=== PATIENT | male | born 1955 | race African-American/Black ===

== ENCOUNTER 2021-11-20 14:22 | Inpatient (IN) | payer MEDICAID, OTHER ==
[~2021-11-20] VITALS: Ht 175.3 cm; Wt 85.0 kg
[~2021-11-20 14:22] MED LIST: ASPI81CH43 PO; ATO40T PO; DOCU100C10 PO; ENO100SY SC; GEMF-19 PO; INSLANTI SC; INSREGI SC; LAB20I IV; METF-370 PO; TERA2CAP45 PO
[2021-11-20] MEDS ORDERED: ONDANSETRON HCL 4 MG/2 ML VIAL IV ONE (15:30)
[2021-11-20] MEDS ORDERED: MORPHINE SULFATE 4 MG/ML SYR/VIAL IV ONE (15:30)
[2021-11-20 15:53] LABS: Basophils # (auto) 0 10 ^3/uL (0-0.2); Eosinophils # (auto) 0 10 ^3/uL (0-0.8); Eosinophils % (auto) 0.4 % (0.0-7.0); Monocytes # (auto) 0.5 10 ^3/uL (0-1.3); Neutrophils # (auto) 5.7 10 ^3/uL (1.6-8.6); Nucleated Red Blood Cells % 0.1 %
[2021-11-20 15:57] LABS: Basophils % (auto) 0.3 % (0.0-2.0); Hematocrit 35.6 % (41.0-53.0); Hemoglobin 11.8 g/dL (13.5-17.5); Lymphocytes # (auto) 0.7 10 ^3/uL (0.4-5.4); Lymphocytes % (auto) 10.4 % (10.0-50.0); Mean Corpuscular Volume 72.9 fL (80.0-100.0); Neutrophils % (auto) 81.9 % (37.0-80.0); Red Blood Cells 4.89 10^6/uL (4.5-5.90); Red Cell Distribution Width 14.7 % (11.8-14.3)
[2021-11-20 16:13] LABS: Magnesium 3.6 mg/dL (1.6-2.6); Potassium 3.3 mmol/L (3.5-5.1)
[2021-11-20 16:18] LABS: Albumin 3.5 g/dL (3.4-5.0); BUN/Creatinine Ratio 15.8; Calcium 9.1 mg/dL (8.5-10.1)
[2021-11-20 16:20] LABS: Bilirubin, Total 0.4 mg/dL (0.2-1.0); Total Protein 6.7 g/dL (6.4-8.2)
[2021-11-20] MEDS ORDERED: MORPHINE SULFATE INJECTION 2 MG/ML SYRG IV PRN (17:45)
[2021-11-20] MEDS ORDERED: NITROGLYCERIN 0.4 MG SL TAB SL PRN (17:45)
[2021-11-20 22:00] VITALS: BP 121/77
[2021-11-21] MEDS ORDERED: SUCR1TAB PO (00:01)
[2021-11-21] MEDS ORDERED: IBUP800T26 PO (00:01)
[2021-11-21] MEDS ORDERED: HYDR12.56 PO (00:01)
[2021-11-21] MEDS ORDERED: ACET-6 PO (00:01)
[2021-11-21] MEDS ORDERED: LOSA-39 PO (00:01)
[2021-11-21] MEDS ORDERED: CARV12.544 PO (00:01)
[2021-11-21] MEDS: MORPHINE SULFATE INJECTION 2 MG/ML SYRG IV PRN ×3 (01:05→22:29)
[2021-11-21 05:15] VITALS: BP 127/81
[2021-11-21 06:00] LABS: Basophils # (auto) 0 10 ^3/uL (0-0.2); Eosinophils # (auto) 0.1 10 ^3/uL (0-0.8); Lymphocytes # (auto) 0.9 10 ^3/uL (0.4-5.4); Monocytes # (auto) 0.6 10 ^3/uL (0-1.3); Nucleated Red Blood Cells % 0.1 %; White Blood Cell 6.6 10^3/uL (4.4-10.8)
[2021-11-21 06:03] LABS: Basophils % (auto) 0.3 % (0.0-2.0); Eosinophils % (auto) 0.8 % (0.0-7.0); Hematocrit 30.7 % (41.0-53.0); Hemoglobin 10.1 g/dL (13.5-17.5); Mean Corpuscular Hemoglobin 23.9 pg (28.0-32.0); Mean Corpuscular Volume 72.4 fL (80.0-100.0); Monocytes % (auto) 8.7 % (0.0-12.0); Neutrophils # (auto) 5.1 10 ^3/uL (1.6-8.6); Neutrophils % (auto) 77.2 % (37.0-80.0); Red Blood Cells 4.24 10^6/uL (4.5-5.90); Red Cell Distribution Width 14.6 % (11.8-14.3)
[2021-11-21 06:06] LABS: Albumin 2.9 g/dL (3.4-5.0); BUN/Creatinine Ratio 18.2; Calcium 8.8 mg/dL (8.5-10.1); Potassium 3.8 mmol/L (3.5-5.1)
[2021-11-21 06:17] LABS: Bilirubin, Total 0.4 mg/dL (0.2-1.0)
[2021-11-21 08:00] VITALS: BP 139/88
[2021-11-21 08:52] LABS: INR 0.96 (0.9-1.15); Partial Thromboplastin Time 26.1 sec (23.6-33.0)
[2021-11-21] MEDS ORDERED: ENOXAPARIN SOD 30 MG/0.3 ML SYRINGE SC SCH (10:00)
[2021-11-21] MEDS ORDERED: DEXTROSE (50%) 50ML SYRG IV PRN (11:15)
[2021-11-21] MEDS: InsuLIN REG 1unit/0.01ml Soln (100units/ml) SC SCH ×2 (11:30→17:43)
[2021-11-21 12:00] VITALS: BP 151/70
[2021-11-21] MEDS: ACCU-CHEK COMFORT CURVE STRIP VI SCH ×3 (14:12→21:59)
[2021-11-21 16:00] VITALS: BP 134/66
[2021-11-21 22:00] VITALS: BP 120/74
[2021-11-21] MEDS ORDERED: InsuLIN REG 1unit/0.01ml Soln (100units/ml) SC SCH (22:00)
[2021-11-22 05:00] VITALS: BP 138/68
[2021-11-22] MEDS: InsuLIN REG 1unit/0.01ml Soln (100units/ml) SC SCH ×2 (07:00→11:30)
[2021-11-22] MEDS: ACCU-CHEK COMFORT CURVE STRIP VI SCH ×2 (07:00→11:30)
[2021-11-22] MEDS: MORPHINE SULFATE INJECTION 2 MG/ML SYRG IV PRN (07:01)
[2021-11-22 09:00] VITALS: BP 111/68
[2021-11-22 13:00] VITALS: BP 136/77
[2021-11-22 13:59] VITALS: BP 112/72
[2021-11-22 14:10] VITALS: BP 111/68
== END 2021-11-22 17:00 | disposition home or self-care (01) ==
LOC: EDBD 14:22 → ER 14:22 → OVERFLOW 17:31 → WEST WING 20:34
PROVIDERS: ADMIT Internal Medicine; ATTEND Family Medicine
PROC: 0W9G3ZZ Drainage of Peritoneal Cavity, Percutaneous Approach (ICD-10-PCS; principal; 2021-11-21)
DX: R18.8 Other ascites (principal); N17.9 Acute kidney failure, unspecified; D64.9 Anemia, unspecified; E87.6 Hypokalemia; E11.9 Type 2 diabetes mellitus without complications; I10 Essential (primary) hypertension; K74.60 Unspecified cirrhosis of liver; K52.9 Noninfective gastroenteritis and colitis, unspecified; Z20.822 Contact with and (suspected) exposure to COVID-19; Z79.4 Long term (current) use of insulin; Z79.82 Long term (current) use of aspirin; Z86.73 Personal history of transient ischemic attack (TIA), and cerebral infarction without residual deficits; Z83.3 Family history of diabetes mellitus
CPT/HCPCS: 36415; 71045; 74176; 76942; 80053; 82565; 82962; 83615; 83690; 83735; 83880; 83986; 84484; 85025; 85048; 85610; 85730; 87040; 87205; 89051; 93005; 96374; 96375; G0378; J1815; J2405